=== PATIENT | male | born 2000 | race Caucasian/White ===

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

== ENCOUNTER 2019-03-10 19:20 | Emergency (ER) | payer OTHER ==
[~2019-03-10] VITALS: Ht 185.4 cm; Wt 100.0 kg
[2019-03-10] MEDS ORDERED: CYCLOBENZAPRINE10 M1 PO (19:59)
[2019-03-10 20:11] VITALS: BP 123/78
== END 2019-03-10 20:10 | disposition home or self-care (01) ==
LOC: ED 19:20
DX: M54.5 Low back pain (principal); F17.210 Nicotine dependence, cigarettes, uncomplicated; X50.0XXA Overexertion from strenuous movement or load, initial encounter; Y99.0 Civilian activity done for income or pay
CPT/HCPCS: J1885; J2360

== ENCOUNTER 2019-10-29 19:31 | Emergency (ER) | payer OTHER ==
[~2019-10-29] VITALS: Ht 185.4 cm; Wt 102.3 kg
[~2019-10-29 19:31] MED LIST: CYCLOBENZAPRINE10 M1 PO
[2019-10-29] MEDS ORDERED: NORCO 325 MG-51 TA1 PO (22:07)
[2019-10-29 22:24] VITALS: BP 110/62
== END 2019-10-29 22:24 | disposition home or self-care (01) ==
LOC: ED 19:31
DX: S62.306A Unspecified fracture of fifth metacarpal bone, right hand, initial encounter for closed fracture (principal); F17.210 Nicotine dependence, cigarettes, uncomplicated; W22.8XXA Striking against or struck by other objects, initial encounter; Y92.812 Truck as the place of occurrence of the external cause
CPT/HCPCS: J1885

== ENCOUNTER 2020-10-08 20:28 | Emergency (ER) | payer OTHER ==
[~2020-10-08 20:28] MED LIST changes: +NORCO 325 MG-51 TA1 PO
[2020-10-08 20:54] LABS: BASO # 0.04 (0.02-0.10); EOS # 0.27 (0.04-0.40); EOS % 2.4 % (0.0-4.0); HEMATOCRIT 46.9 % (42.0-52.0); HEMOGLOBIN 16.9 g/dL (13.5-18.0); LYMPH# 2.29 (1.50-4.00); MEAN CELL VOLUME 83 fl (78-100); MEAN CORPUSCULAR HEMOGLOBIN 30 pg (27-31); MEAN CORPUSCULAR HGB CONC 36 g/dL (33-37); MONO # 0.87 (0.20-0.80); PLATELET COUNT 282 K/mm3 (130-400); POTASSIUM 3.7 mmol/L (3.5-5.1); RED BLOOD COUNT 5.64 M/mm3 (4.20-5.60); RED CELL DISTRIBUTION WIDTH 11.6 % (11.5-14.5); SODIUM 140 mmol/L (136-145); WHITE BLOOD COUNT 11.1 K/mm3 (4.8-10.8)
[2020-10-08 20:55] LABS: ALBUMIN 4.1 g/dL (3.5-5.0)
[2020-10-08 20:56] LABS: CALCIUM 9.3 mg/dL (8.3-10.5)
[2020-10-08 20:58] LABS: CARBON DIOXIDE 22 mmol/L (22-29); GLUCOSE 124 mg/dL (75-110); TOTAL PROTEIN 7.1 g/dL (6.4-8.3)
[2020-10-08 20:59] LABS: TOTAL BILIRUBIN 0.6 mg/dL (0.2-1.2)
[2020-10-08 21:01] LABS: ALCOHOL IN-HOUSE < 10 mg/dL (<10)
[2020-10-08 21:02] LABS: AST-SGOT 53 U/L (5-34)
[2020-10-08 21:05] LABS: ALT/SGPT 105 U/L (0-55)
[2020-10-08 21:12] LABS: TROPONIN-I < 0.03 ng/mL (<0.030)
[2020-10-08 22:22] LABS: LIPASE 25 U/L (8-78)
[2020-10-08 23:10] LABS: URINE APPEARANCE CLEAR; URINE COLOR YELLOW; URINE WBC 0 /hpf (0-3)
[2020-10-08 23:16] LABS: URINE BILIRUBIN NEGATIVE (NEGATIVE); URINE BLOOD NEGATIVE (NEGATIVE); URINE GLUCOSE NEGATIVE (NEGATIVE); URINE KETONE NEGATIVE (NEGATIVE); URINE LEUKOCYTE ESTERASE NEGATIVE (NEGATIVE); URINE NITRATE NEGATIVE (NEGATIVE); URINE PROTEIN(semi-quant) NEGATIVE (NEGATIVE); URINE UROBILINOGEN NORMAL (NORMAL)
[2020-10-09 00:01] VITALS: BP 130/80
== END 2020-10-09 00:03 | disposition home or self-care (01) ==
LOC: ED 20:28
PROVIDERS: Nurse Practitioner
DX: F10.10 Alcohol abuse, uncomplicated (principal); F15.90 Other stimulant use, unspecified, uncomplicated; R94.5 Abnormal results of liver function studies; Z87.891 Personal history of nicotine dependence
CPT/HCPCS: J7030

== ENCOUNTER → 2024-02-18 | Outpatient (CLI) | payer OTHER ==
[2024-02-18 10:28] LABS: BASO # 0.05 K/mm3 (0.02-0.10); EOS # 0.28 K/mm3 (0.04-0.40); HEMATOCRIT 48.7 % (42.0-52.0); HEMOGLOBIN 16.9 g/dL (13.5-18.0); LYMPH# 1.71 K/mm3 (1.50-4.00); MEAN CELL VOLUME 86 fl (78-100); MEAN CORPUSCULAR HEMOGLOBIN 30 pg (27-31); MEAN CORPUSCULAR HGB CONC 35 g/dL (33-37); MONO # 0.68 K/mm3 (0.20-0.80); NEU # 6.53 K/mm3 (1.40-6.50); PLATELET COUNT 271 K/mm3 (130-400); RED BLOOD COUNT 5.64 M/mm3 (4.20-5.60); RED CELL DISTRIBUTION WIDTH 12.2 % (11.5-14.5); WHITE BLOOD COUNT 9.3 K/mm3 (4.8-10.8)
[2024-02-18 10:38] LABS: ALBUMIN 4.8 g/dL (3.5-5.0)
[2024-02-18 10:40] LABS: CALCIUM 9.8 mg/dL (8.3-10.5)
[2024-02-18 10:41] LABS: TOTAL PROTEIN 7.2 g/dL (6.4-8.3)
[2024-02-18 10:43] LABS: TOTAL BILIRUBIN 0.9 mg/dL (0.2-1.2)
== END ==
LOC: LAB 10:17
PROVIDERS: Nurse Practitioner Family
DX: K92.1 Melena (principal)